=== PATIENT | female | born 1935 | race Caucasian/White ===

== ENCOUNTER 2016-12-13 23:19 | Emergency (ER) | payer MEDICARE, BC ==
[2016-12-13 23:29] VITALS: BP 146/74
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
[2016-12-14] MEDS ORDERED: Haloperidol 5 MG Tab PO ONE (00:44)
== END 2016-12-14 01:31 ==
LOC: EDUNIT# → JP.ED 23:19
DX: F05 Delirium due to known physiological condition (principal); E78.00 Pure hypercholesterolemia, unspecified; I25.10 Atherosclerotic heart disease of native coronary artery without angina pectoris; N18.9 Chronic kidney disease, unspecified; Z79.82 Long term (current) use of aspirin; Z79.899 Other long term (current) drug therapy; Z90.49 Acquired absence of other specified parts of digestive tract; Z90.710 Acquired absence of both cervix and uterus
CPT/HCPCS: 36415; 80053; 81001; 85025; 99284; 99285; A9270